=== PATIENT | male | born 1955 | race Caucasian/White ===

== ENCOUNTER 2022-07-03 05:54 | Day surgery (SDC) | payer BC, SELFPAY ==
[2022-07-03] VITALS (22 sets, daily range): BP systolic 102–155; BP diastolic 63–98; PULSE 52–103; RESP 14–20; TEMP 36.4–37.3; O2SAT 93–99; BMI 21.0
[2022-07-03] MEDS: OXYCODONE (CR) 10 MG TAB.ER.12H PO (06:33)
[2022-07-03] MEDS: ACETAMINOPHEN 500 MG TABLET 1000 MG PO ×3 (06:33→20:46)
[2022-07-03] MEDS: CELECOXIB 200 MG CAPSULE PO ×2 (06:33→20:47)
[2022-07-03] MEDS: SODIUM CHLORIDE 0.9 % (FLUSH) 10 ML SYRINGE IVF (07:30)
[2022-07-03] MEDS: LACTATED RINGERS 1000 ML 1,000 ML 100 ML IV (07:30)
--- NOTE | 2022-07-03 07:56 | SUR.PREOP ---
TIME?OUT:?right knee PT/RN/MDA?VERIFICATION?OF?SURGICAL?SITE,?PROCEDURE,?AND?CONSENT OBTAINED?PRIOR?TO?INVASIVE?PROCEDURE.
[2022-07-03] MEDS: fentaNYL 100 MCG/2 ML inj IVP (08:00)
[2022-07-03] MEDS: MIDAZOLAM HCL 1 MG/ML inj IVP (08:00)
--- NOTE | 2022-07-03 08:08 | W.PM.NB ---
Nerve Block Nerve Block Time Seen by Provider: 08:08 Date Seen: 07/03/22 Type of block requested by surgeon for post-operative analgesia: geniculars Side: right Time out performed: Yes Verification of patient name: Yes Verification of date of : Yes Site marking: site marked Name of person performing procedure: Omar Continuous monitoring Was continuous monitoring of O2 sat, B/P, housing project manager, recorded every 15 minutes?: Yes Procedure Checklist: sterile prep, needles and gloves Medications given in 5ml increments after negative aspiration: Marcaine %: 0.5 mL: 10 Needle gauge: 25 Patient tolerated procedure well: Yes Block Charges Block Charge (with Pro Fee): Genicular Nerve Block Use of Ultrasound Machine for Block: No
--- NOTE | 2022-07-03 08:08 | W.PM.NB ---
Nerve Block Nerve Block Time Seen by Provider: 08:08 Date Seen: 07/03/22 Type of block requested by surgeon for post-operative analgesia: adductor canal Side: right Time out performed: Yes Verification of patient name: Yes Verification of date of : Yes Site marking: site marked Name of person performing procedure: Omar Assistants, if any: Cyndiembrogharesh Continuous monitoring Was continuous monitoring of O2 sat, B/P, quality assurance monitor, recorded every 15 minutes?: Yes Procedure Checklist: sterile prep, needles and gloves Ultrasound guided. Images saved: Yes Medications given in 5ml increments after negative aspiration: Marcaine %: 0.5 mL: 20 Needle gauge: 20 Decadron (mg): 10 Precedex (mcg): 25 Patient tolerated procedure well: Yes Additional comments: Needle noted adjacent to nerve Block Charges Block Charge (with Pro Fee): Femoral Nerve Use of Ultrasound Machine for Block: Yes- US Guidance/pain block
[2022-07-03] MEDS: CEFAZOLIN 2 GM INJ IVP (08:30)
--- NOTE | 2022-07-03 09:04 | SUR.OPER ---
PATIENT QUESTIONS ANSWERED SATISFACTORILY PREOPERATIVELY.? PATIENT BROUGHT TO OR #3 PER CART AFTER ADMINISTRATION OF THE BLOCK.? Patient positioned supine on OR #3 bed.?The perioperative?team supported arms bilaterally on arm boards.? Final approval of positioning by surgeon.?
--- NOTE | 2022-07-03 09:31 | CRLHL7_ITS ---
For Patients: As a result of the Cures Act, medical imaging exams and procedure reports are released immediately into your electronic medical record. You may view this report before your referring provider. If you have questions, please contact your health care provider. Indication: POST OP RIGHT TKA Technique: Two views right knee Findings/Impression: Hardware from a right total knee arthroplasty is in satisfactory position. Bone alignment is normal. No sign of acute fracture. Postop changes are within normal limits. Dictated by Sergey Strong MD @ 07/03/2022 11:18:19 AM (Electronically Signed)
--- NOTE | 2022-07-03 09:34 | P.ORPRC_ITS ---
Procedure Note Date of procedure: 07/03/22 Procedure: SURGEON: Imer Oviedo MD LABORATORY IMMUNOLOGIST: JOHANNA Xiong PREOPERATIVE DIAGNOSIS: Right knee osteoarthritis POSTOPERATIVE DIAGNOSIS: Right knee osteoarthritis NAME OF OPERATION: Right total knee arthroplasty ANESTHESIA: Spinal ESTIMATED BLOOD LOSS: 0 mL COMPLICATIONS: None SPECIMENS: None DRAINS: None PREOPERATIVE ANTIBIOTICS: Ancef 1 g IMPLANTS: 1. J&J Attune #6 posterior stabilized femur 2. #6 fixed-bearing tibia 3. #6 posterior stabilized, 10 mm fixed-bearing polyethylene 4. 38 patella INDICATIONS: The patient is a 67-year-old male with a longstanding history of severe, unrelenting right knee pain secondary to end-stage (grade IV) right knee osteoarthritis. Despite appropriate nonoperative management, including activity modification, anti-inflammatories, [id number]-[id number] pain medication, bracing, physical therapy, and injections they continue to have pain and disability. Operative intervention was offered. The risks, benefits and expected outcomes were discussed in detail. These included but were not limited to: Infection, bleeding, injury to blood vessel or nerve, venous thromboembolism. All questions were answered to their satisfaction. Use of an assistant track and field coach was necessary throughout the case for patient positioning and safety, soft tissue retraction, and closure. PROCEDURE: Spinal anesthesia was administered. The patient was placed supine on the operating table. The assistant track and field coach made sure the patient was positioned appropriately. The lower extremity was prepped and draped in the usual sterile fashion. The limb was exsanguinated with the Ramiro bandage. The pneumatic tourniquet was inflated to 300 mmHg. A standard anterior incision was made with the knee in flexion. Subcutaneous dissection was sharply taken through fascial layer #1. Full-thickness medial and lateral flaps were elevated. The assistant track and field coach retracted the soft tissues and protected them throughout the case. A standard medial parapatellar approach was made. The patella was everted. The infrapatellar fat pad was preserved. The menisci and cruciate ligaments were sharply d?brided. Marginal osteophytes were d?brided with the rongeur. The drill was used to penetrate the femoral canal. The canal was aspirated and irrigated with pulse lavage. The intramedullary femoral guide was placed for a 5-degree valgus cut, removing 10 mm off the distal femur. The saw was used to make the cut. Whitesides line and the trans epicondylar axis were marked. The femoral sizing guide was pinned onto the distal femur. Three degrees of external rotation nicely parallels the transepicondylar axis. Pins were placed for posterior referencing. The four-in-one cutting guide was pinned onto the distal femur. The anterior, posterior, and chamfer cuts were made. The assistant track and field coach protected the collateral ligaments. The box cutting guide was pinned. The box cuts were made. The boxed trial was placed and was an excellent fit. Drill holes for the lugs were made. Attention was then turned to the proximal tibia. The extramedullary tibial guide was placed for a neutral varus/valgus cut with 5 degrees of posterior slope, removing 1 mm based off the medial tibial surface. The assistant track and field coach protected the collateral ligaments and the neurovascular bundle. The saw was used to make the cut. Trial components were placed. The knee was nicely balanced in both flexion and extension. Rotation of the tibial component was matched to the femur in full extension, matched to our tibial cutting pins, and marked with cautery. The trial components were removed. The tray was pinned by the assistant track and field coach and the drill and the punch were used. The tray was removed. The punch was used again. We placed a bone plug in the femoral canal. Attention was then turned to the patella. [place] patellar thickness was 22 mm. The lobster claw resection guide was used with the 7.5 mm kusum. The saw was used to make the cut. Drill holes were made by the assistant track and field coach. The trial was placed and was an excellent fit. Cancellous surfaces were irrigated with pulse lavage and thoroughly dried by the assistant track and field coach. We cemented the tibial component, then the femoral component. A trial spacer was placed. The knee was brought into full extension. We then cemented the patellar component. Excessive cement was removed. The cement was allowed to harden. Any remaining excessive cement was removed with the osteotome. We impacted the 10 mm polyethylene onto the tibial tray. The knee was taken through a range of motion and was found to be nicely balanced in both flexion and extension. The patella tracks centrally. The assistant track and field coach did a three minute dilute Betadine solution soak. The assistant track and field coach irrigated the wound with 3 liters of normal saline via pulse lavage. The assistant track and field coach reapproximated the extensor mechanism with #1 Vicryl in an interrupted [id number] fashion. The assistant track and field coach then ran the extensor mechanism with a #1 PDO Stratafix. The assistant track and field coach closed the subcutaneous tissues with a 3-0 Stratafix and the skin with a running 3-0 Stratafix in a subcuticular fashion. Glue was used to seal the skin. The assistant track and field coach placed a dry dressing, DARREN stocking, and Polar Care. Sponge and needle counts were correct x2. The patient tolerated the procedure well. There were no apparent complications. They were carefully transferred to the hospital bed and taken to the postanesthesia care unit in satisfactory condition. PLAN: The patient will be mobilized with physical therapy. Aspirin will be used for DVT prophylaxis. They will be discharged to home once medically appropriate.
--- NOTE | 2022-07-03 10:19 | W.ANESCHARGE ---
Anesthesia Charges Start Date/Time Anesthesia Start Date: 07/03/22 Anesthesia Start Time: 08:13 Stop Date/Time Anesthesia Stop Date: 07/03/22 Anesthesia Stop Time: 10:23 Summary Emergency: No
--- NOTE | 2022-07-03 10:26 | W.ANESCHARGE ---
Anesthesia Charges Start Date/Time Anesthesia Start Date: 07/03/22 Anesthesia Start Time: 08:13 Stop Date/Time Anesthesia Stop Date: 07/03/22 Anesthesia Stop Time: 10:23 Summary Emergency: No
[2022-07-03] MEDS: LACTATED RINGERS 1000 ML 1,000 ML 75 ML IV ×2 (11:19→18:07)
[2022-07-03 14:06] LABS: Sodium* 137 mmol/L (135-149)
--- NOTE | 2022-07-03 14:30 | PM.IMCN1 ---
Date of Consult Patient: Malaika Patient Consult date: 07/03/22 Requesting Physician: Orthopedics Primary Care Provider: Manjula Ibarra MD Consult Narrative Reason for consult: Postoperative care of coronary disease, hypertension, Parkinson disease Narrative: Tony Isaacs III is a 67 year old man who underwent an elective right total knee arthroplasty today. His orthopedic surgeon has requested that the hospitalists assist with supporting the patient postoperatively relative to known coronary disease, hypertension, and Parkinson's disease. Patient has a history of unstable angina and coronary artery disease. Status post coronary bypass grafting March of 2021, CAMEJO to LAD, SVG to OM, SVG to PDA. Excellent results. Asymptomatic since then. Also has a history of coronary artery stent placement prior to this. Blood pressure and cholesterol have been well controlled. Patient struggles with evolving Parkinson's disease. On multiple medications for treatment of the same. Lives home alone. Does have some support. His intention is to return home after the surgery. Review of Systems Status of ROS: Reports: 10 or more systems reviewed and unremarkable except as noted in History and below Narrative: Denies chest heaviness, pressure, tightness, or pain. Denies angina anginal equivalent. Denies syncope or near-syncope. Denies nausea or vomiting. Denies palpitations. Denies dyspnea at rest, paroxysmal nocturnal dyspnea, orthopnea. Denies dependent edema. Bowel and bladder function are satisfactory. Takes his time when eating. Denies dyspepsia, dysphagia, or odynophagia. No recent trauma or travel. No recent febrile illness, rigors, or diaphoresis. Weight has been relatively stable. No weight gain or weight loss. Acknowledges difficulty with his voice. Has a hard time projecting his voice with evolving Parkinson's disease. Able to manage independently in his own home. Denies myalgias or arthralgias. Patient makes it very clear that he wants a DNR DNI resuscitation status. This is not new. He has felt this way for some time. He did not hesitate whatsoever in articulating this to me during the course of my assessment. [facility] Medical History (Updated 07/03/22 @ 14:51 by Humberto Meneses MD) Coronary atherosclerosis Depressive disorder History of unstable angina History of urinary retention Hypercholesteremia Hypertension Myocardial infarction Parkinson disease Post traumatic stress disorder (PTSD) Sleep apnea Surgical History (Updated 07/03/22 @ 14:48 by Humberto Meneses MD) History of coronary artery stent placement History of laminectomy History of quadruple bypass (~04/25/21) Hx of bilateral inguinal hernia repair Family History Sister High blood pressure Father Basal cell carcinoma Prostate cancer High blood pressure Myocardial infarct Mother Diabetes Myocardial infarct Social History Smoking Status: Never smoker Do you use any of these nicotine containing products: None How often do you have a drink containing alcohol: never AUDIT-C Alcohol total score: 0 Non-prescribed substance use: denies use Non-prescribed substance use details: acetaminophen Caffeine: Yes (coffee, 1 cup/day) Meds Home Medications and Allergies Home Medications Medication Instructions Recorded Confirmed Type acetaminophen 325 mg tablet (Aphen) 325 - 650 mg PO Q4H PRN 07/03/22 07/03/22 History amantadine HCl 100 mg capsule 100 mg PO BID 07/03/22 07/03/22 History ascorbic acid (vitamin C) 500 mg 500 mg PO DAILY 07/03/22 07/03/22 History tablet aspirin 81 mg chewable tablet 81 mg PO DAILY PRN 07/03/22 07/03/22 History carbidopa ER 23.75 mg-levodopa 95 5 cap PO BID 07/03/22 07/03/22 History mg capsule,extended release carbidopa ER 50 mg-levodopa 200 mg 1 tab PO HS 07/03/22 07/03/22 History tablet,extended release multivitamin with iron (Daily 1 tab PO DAILY 07/03/22 07/03/22 History Multiple Vitamins with Iron tablet) nitroglycerin 0.4 mg sublingual 0.4 mg sublingual Q5M PRN 07/03/22 07/03/22 History tablet rosuvastatin 40 mg tablet 40 mg PO DAILY 07/03/22 07/03/22 History sennosides 8.6 mg-docusate sodium 1 tab-cap PO DAILY PRN 07/03/22 07/03/22 History 50 mg tablet (Senexon-S) Allergies Allergy/AdvReac Type Severity Reaction Status Date / Time adenosine Allergy Severe feeling of Verified 07/03/22 06:22 PA Cephalosporins Allergy Severe Anaphylaxis Verified 07/03/22 06:22 dobutamine Allergy Unknown Verified 07/03/22 06:22 morphine Allergy Verified 07/03/22 06:22 Erythromycin Allergy Mild GI upset Uncoded 07/03/22 06:22 Exam Narrative: Exam Narrative: Alert, articulate, cooperative. Oriented to self, place, time, situation. Friendly and talkative. Articulate. Coherent. Mood and affect are congruent. Lungs clear to auscultation. Heart tones with regular rhythm, normal S1-S2. No murmur, gallop, or rub. Abdomen with active bowel sounds, soft, nontender. Thin abdomen. Resting tremor, not new. No asterixis or ataxia. Moves all 4 extremities. No edema. Skin is warm, dry, intact. Const: Vital Signs, click to edit/add: Vital Signs - 24 hr 07/03/22 06:55 07/03/22 08:00 07/03/22 08:12 Temperature 99.2 F 99.2 F Pulse Rate 78 70 72 Pulse Rate [Left P ulse Oximeter] Respiratory Rate 20 16 16 Blood Pressure 137/78 155/80 H 153/78 H Blood Pressure [Ri ght Arm] Pulse Oximetry 99 98 98 Oxygen Delivery Me thod Room Air Nasal Cannula Nasal Cannula Oxygen Flow Rate 2 2 07/03/22 10:19 07/03/22 10:25 07/03/22 10:50 Temperature 97.8 F Pulse Rate 58 L 54 L 52 L Pulse Rate [Left P ulse Oximeter] Respiratory Rate 14 16 16 Blood Pressure 102/63 125/71 120/70 Blood Pressure [Ri ght Arm] Pulse Oximetry 93 94 96 Oxygen Delivery Me thod Room Air Room Air Oxygen Flow Rate 07/03/22 10:30 07/03/22 10:35 07/03/22 10:40 Temperature Pulse Rate 61 54 L 56 L Pulse Rate [Left P ulse Oximeter] Respiratory Rate 14 16 16 Blood Pressure 106/66 106/69 118/82 Blood Pressure [Ri ght Arm] Pulse Oximetry 94 93 93 Oxygen Delivery Me thod Nasal Cannula Room Air Room Air Oxygen Flow Rate 07/03/22 10:45 07/03/22 10:55 07/03/22 11:15 Temperature 97.5 F L 97.5 F L 97.6 F Pulse Rate 58 L 56 L Pulse Rate [Left P ulse Oximeter] 61 Respiratory Rate 16 16 14 Blood Pressure 123/81 120/90 H Blood Pressure [Ri ght Arm] 136/69 Pulse Oximetry 96 98 97 Oxygen Delivery Me thod Room Air Room Air Room Air Oxygen Flow Rate 2 07/03/22 11:15 07/03/22 11:30 07/03/22 11:45 Temperature 97.6 F 97.6 F 97.6 F Pulse Rate Pulse Rate [Left P ulse Oximeter] 61 60 71 Respiratory Rate 14 14 16 Blood Pressure Blood Pressure [Ri ght Arm] 136/69 145/90 H 134/78 Pulse Oximetry 97 95 94 Oxygen Delivery Me thod Room Air Room Air Room Air Oxygen Flow Rate 07/03/22 11:15 07/03/22 12:00 07/03/22 12:15 Temperature 97.6 F 97.5 F L 97.8 F Pulse Rate 61 Pulse Rate [Left P ulse Oximeter] 71 85 Respiratory Rate 14 16 16 Blood Pressure Blood Pressure [Ri ght Arm] 136/69 138/82 135/81 Pulse Oximetry 94 94 Oxygen Delivery Me thod Room Air Room Air Room Air Oxygen Flow Rate Labs Labs: [facility] 07/03/22 13:36 Sodium 137 Assessment and Plan Assessment and plan (1) Osteoarthritis of right knee: Status: Acute (2) Status post total knee replacement, right: Status: Acute (3) Parkinson disease: Status: Acute (4) Coronary atherosclerosis: Status: Acute (5) Hypertension: Status: Acute (6) History of urinary retention: Status: Acute (7) Sleep apnea: Problem comment: Does not use CPAP Status: Acute Plan 1. Reviewed impression with patient. Answered his questions. 2. Resume his usual medications. 3. Monitor for complications. 4. Will follow with Orthopedic surgery. 5. Agrees venous thromboembolism prophylaxis. 6. Agree with perioperative prophylactic antibiotics. 7. Will specifies request for DNR DNI resuscitation status in the event of cardiopulmonary demise. 8. Patient designates his sister as his power of employment attorney for health should that be required. 9. History of obstructive sleep apnea noted. Does not use CPAP. States he has done well in this regard for some time. Will monitor nonetheless.
--- NOTE | 2022-07-03 14:37 | PC.SOCIAL ---
Discharge planning: Met briefly with pt for discharge planning. Pt states he lives by himself in [place] and is expecting to return home alone at discharge. Pt has a home care nurse through [facility] who sets up medications every other week. Pt states he does all other housekeeping, cooking, etc on his own and expects to be able to do that at discharge. Pt denied having any one arranged to assist him at home besides home care nurse for medication set up. calender worker helper shared information on options for short term rehab if needed. PT is not interested at this time in that option but is aware outreach and education social worker is available if discharge plans or needs change. automobile body worker to follow up as needed.
[2022-07-03] MEDS: CEFAZOLIN 1 GM in 0.9 % SODIUM CHLORIDE Mini-bag 100 ML IVPB ×2 (14:41→23:02)
[2022-07-03] MEDS: OXYCODONE 5 MG TABLET PO ×3 (16:08→20:47)
[2022-07-03] MEDS: HYDROmorphone 0.5 mg/0.5 ml inj IVP (18:06)
--- NOTE | 2022-07-03 19:08 | PC.NURSE ---
shift note: pt to rm via bed @ 1115. Pt a&o x3. post op vss stable. pt had complete numbness till 1530. Pt had 5mg oxycodone for 8 pain with no relief. additional 5 mg oxycodone given for 07/09 @ 1644. pt up to recliner with 1/walker. pt has shuffled gait. drs to rt knee c/d/i. cryo cuff over surgical site. pp intact bilat. LS clr. IV patent. Pt medicated for 07/09 continued pain rt knee @ 1806
[2022-07-03] MEDS: ASPIRIN 81 MG TABLET EC PO (20:47)
[2022-07-03] MEDS: SENNOSIDES 1 TAB TABLET 2 TAB PO (20:47)
[2022-07-04] MEDS: ACETAMINOPHEN 500 MG TABLET 1000 MG PO ×2 (00:49→09:26)
[2022-07-04] MEDS: OXYCODONE 5 MG TABLET PO (04:23)
[2022-07-04] MEDS: CEFAZOLIN 1 GM in 0.9 % SODIUM CHLORIDE Mini-bag 100 ML IVPB (06:09)
--- NOTE | 2022-07-04 06:58 | PC.NURSE ---
Alert and orientedx3 with some intermittent forgetfulness; easily reoriented. On room air satting fine. Vitals stable. right knee dressing CDI. Pain on the right knee managed with ice pack, Tylenol and oxycodone. Up and walking with standby assist and a walker. Lots of anxiety with his leg gadget needing a lot of assurance. Abx administered as per orders. Excited to start therapy and go home. No signs of infection noted. Will continue to monitor and assess
[2022-07-04 07:36] LABS: Basophils Percent Auto 0.1 % (0.0-3.0); Hematocrit 39.1 % (37.0-53.0); Hemoglobin* 13.1 gm/dL (13.5-17.5); Immature Granulocytes Abs Auto 0.04 K/uL (0.00-0.30); Lymphocytes Percent Auto 4.7 % (20-44); Mean Corpuscular HGB Conc 34 gm/dL (32-36); Mean Corpuscular Hemoglobin 30 pg (26-34); Mean Corpuscular Volume 90 fL (80-100); Monocytes Percent Auto 5.8 % (0.0-11.0); Neutrophils Percent Auto 89.2 % (42.0-72.0); Platelet Count* 312 K/uL (140-440); RDW Coefficient of Variation % 11.4 % (11.5-15.5); Red Blood Count 4.37 m/uL (4.30-5.90); White Blood Count* 16.84 K/uL (4.50-11.00)
[2022-07-04 07:42] LABS: Slide Review Reflex No
[2022-07-04 07:44] LABS: INR 1.19 (0.91-1.10); Prothrombin Time 15.6 Seconds
[2022-07-04 07:53] LABS: Chloride* 100 mmol/L (96-114); Potassium* 3.9 mmol/L (3.6-5.1); Sodium* 134 mmol/L (135-149)
[2022-07-04 07:56] LABS: Carbon Dioxide* 29 mmol/L (20-32)
[2022-07-04] MEDS: CELECOXIB 200 MG CAPSULE PO (09:24)
[2022-07-04] MEDS: ASPIRIN 81 MG TABLET EC PO (09:25)
[2022-07-04] MEDS: ROSUVASTATIN CALCIUM 10 MG TABLET 40 MG PO (09:26)
[2022-07-04] MEDS: SENNOSIDES 1 TAB TABLET 2 TAB PO (09:27)
--- NOTE | 2022-07-04 09:40 | PC.SOCIAL ---
Discharge plan: Met with pt again regarding d/c plan. Pt plans to return home with some assistance from his sister. Pt has been doing out pt PT prior to surgery and had planned on out pt PT at discharge. Today, pt is interested in home care for PT through [facility] if he qualifies for this service. Shared in formation with PT/OT and will follow up as needed.
--- NOTE | 2022-07-04 10:27 | PM.ORPN ---
Subjective Subjective Time Seen by Provider: 09:30 Date Seen: 07/04/22 Principal diagnosis: S/P right TKA Interval history: Tony is doing well this morning and is resting comfortably in his recliner. Patient complains of diffuse right knee pain and swelling. Pain is well managed with current scheduled and PRN oral pain medications and ice. Denies: fever, chills, body aches, chest pain, SOB. Patient has not yet been seen by Physical Therapy, but he is eager to get up and moving. Patient denies having a bowel movement since surgery and reports no flatulence yet. Patient has h/o Parksinsons and struggles with chronic constipation. He explains he has an enema readily available at home if needed. Patient feels ready to be discharged to home later this afternoon. His sister will be looking after him at home x 1 week. No acute events over night. Ortho Exam Narrative Exam Narrative: Incision/Dressing: Dressing appears clean and dry. No drainage present. Mepilex intact. Right knee appears moderately swollen but supple with no obvious erythema, fluctuance or excessive warmth. No ecchymosis or erythematous streaking. Warmth around the wound is appropriate. Ice is being utilized as needed. CMS: Intact distally with 2+ Dorsalis pedis and Posterior Tibial pulses. 5/5 motor strength dorsal and plantar flexion. Confirmed sensation distally. Intact straight leg raise. Calf: Bilateral calves are supple, with no swelling, pain, tenderness, erythema, discoloration or coolness to the touch. Constitutional: Patient is alert and oriented x3. Patient is in no acute distress and converses without labored breathing. Patient is able to make decisions and demonstrates good insight. Patient is pleasant and cooperative. Affect is full range and appropriate for the circumstances. Const Vital Signs, click to edit/add: Vital Signs - 24 hr 07/03/22 10:50 07/03/22 10:30 07/03/22 10:35 Temperature Pulse Rate 52 L 61 54 L Pulse Rate [Left Pulse Oximeter] Respiratory Rate 16 14 16 Blood Pressure 120/70 106/66 106/69 Blood Pressure [Right Arm] Pulse Oximetry 96 94 93 Oxygen Delivery Method Room Air Nasal Cannula Room Air Oxygen Flow Rate 07/03/22 10:40 07/03/22 10:45 07/03/22 10:55 Temperature 97.5 F L 97.5 F L Pulse Rate 56 L 58 L 56 L Pulse Rate [Left Pulse Oximeter] Respiratory Rate 16 16 16 Blood Pressure 118/82 123/81 120/90 H Blood Pressure [Right Arm] Pulse Oximetry 93 96 98 Oxygen Delivery Method Room Air Room Air Room Air Oxygen Flow Rate 2 07/03/22 11:15 07/03/22 11:15 07/03/22 11:30 Temperature 97.6 F 97.6 F 97.6 F Pulse Rate Pulse Rate [Left Pulse Oximeter] 61 61 60 Respiratory Rate 14 14 14 Blood Pressure Blood Pressure [Right Arm] 136/69 136/69 145/90 H Pulse Oximetry 97 97 95 Oxygen Delivery Method Room Air Room Air Room Air Oxygen Flow Rate 07/03/22 11:45 07/03/22 11:15 07/03/22 12:00 Temperature 97.6 F 97.6 F 97.5 F L Pulse Rate 61 Pulse Rate [Left Pulse Oximeter] 71 71 Respiratory Rate 16 14 16 Blood Pressure Blood Pressure [Right Arm] 134/78 136/69 138/82 Pulse Oximetry 94 94 Oxygen Delivery Method Room Air Room Air Room Air Oxygen Flow Rate 07/03/22 12:15 07/03/22 12:45 07/03/22 13:15 Temperature 97.8 F 97.8 F 97.8 F Pulse Rate Pulse Rate [Left Pulse Oximeter] 85 86 95 Respiratory Rate 16 16 16 Blood Pressure Blood Pressure [Right Arm] 135/81 135/81 116/92 H Pulse Oximetry 94 95 95 Oxygen Delivery Method Room Air Room Air Room Air Oxygen Flow Rate 07/03/22 14:15 07/03/22 15:15 07/03/22 16:15 Temperature 97.8 F 97.8 F 97.8 F Pulse Rate Pulse Rate [Left Pulse Oximeter] 103 H 100 81 Respiratory Rate 16 16 16 Blood Pressure Blood Pressure [Right Arm] 143/98 H 131/88 122/77 Pulse Oximetry 96 96 96 Oxygen Delivery Method Room Air Room Air Room Air Oxygen Flow Rate 2 07/03/22 17:15 Temperature 97.8 F Pulse Rate Pulse Rate [Left Pulse Oximeter] 85 Respiratory Rate 16 Blood Pressure Blood Pressure [Right Arm] 149/67 H Pulse Oximetry 97 Oxygen Delivery Method Room Air Oxygen Flow Rate Assessment and Plan Assessment and plan (1) Osteoarthritis of right knee: Status: Acute (2) Status post total knee replacement, right: Problem details: 1. Status post right total knee replacement. DOS: . Status: Acute Assessment and Plan: - Complete 23 hour perioperative antibiotics. - PT/OT consults for education and assistance. - Social consult for discharge planning. - Weight bear as tolerated. - DVT prophylaxis includes: aspirin 81 mg BID x 1 month. Also bilateral knee high Fabrice stockings (x 1 month), frequent ambulation and ankle pumps when sedentary. - Anticipate patient will be discharged to home this afternoon if the patient remains medically stable, pain is controlled and is safe with ambulation. - Return to clinic in 1 week for a wound check. Mepilex dressing will be removed at this appointment. Remove sooner if dressing becomes saturated. - Return to clinic in [address] Oviedo. - Prescribed analgesics as needed. Patient is content with current narcotic medications. Minimize narcotic pain medication use; wean off and discontinue as soon as possible. - Phone Orthopedics with any questions or concerns. (3) Parkinson disease: Status: Acute (4) Coronary atherosclerosis: Status: Acute (5) Hypertension: Status: Acute (6) History of urinary retention: Status: Acute (7) Sleep apnea: Problem details: Does not use CPAP Status: Acute
--- NOTE | 2022-07-04 10:53 | PM.DS1 ---
DS: Providers Provider Time Seen by Provider: 10:30 Date Seen: 07/04/22 Date of admission: 07/03/2022 Primary care physician: Manjula Ibarra MD Admitting Clinician: Imer Oviedo MD Consults: 07/03/22 11:13 Consult to Occupational Therapy [CONS] Routine Comment: Reason(s) for OT Consult:: ADLs Prior to Discharge Any Restrictions?:: See Comment Comment: See nursing activity order for any restrictions. Consult to Physical Therapy [CONS] Routine Comment: Ambulate in the ackerman today. Reason(s) for PT Consult:: TKA TX Protocol POD#0 Any Restrictions?:: See Comment Comment: See nursing activity order for any restrictions. Consult to Physician [CONS] Routine Comment: Consulting Provider: Hospitalists Has provider been notified: No Consult to Capacity Management Specialist [CONS] Routine Comment: Reason for Consult:: Discharge Planning Needs Attending Physician on discharge: Imer Oviedo MD Date of Discharge: 07/04/22 DS: Diagnosis Discharge Diagnosis (1) Osteoarthritis of right knee: Status: Acute (2) Status post total knee replacement, right: Status: Acute Problem details: 1. Status post right total knee replacement. DOS: . (3) Parkinson disease: Status: Acute (4) Hypertension: Status: Acute (5) Coronary atherosclerosis: Status: Acute (6) Sleep apnea: Status: Acute Problem details: Does not use CPAP (7) History of urinary retention: Status: Acute DS: Summary Hospital Course Hospital Course: 67-year-old man who presented for an elective right total knee arthroplasty. This is undertaken successfully. No complications apparent. He demonstrates adequate ability to care for self and ambulate. Will need support from his sister in the home for about a week. We spoke with her. She is agreeable. Patient agreeable. Does have mild postoperative anemia with hemoglobin 13.1. Also has mild postoperative hyponatremia with sodium of 134. Status at Discharge Functional status at discharge: uses cane/walker Overall status at discharge: patient is progressing back to baseline Time Spent with Patient Time attestation: Total time spent providing and/or coordinating discharge services: Time spent: Less than 30 minutes Exam Narrative: Exam Narrative: Alert, articulate, cooperative.? Oriented to self, place, time, situation.? Friendly and talkative.? Articulate.? Coherent.? Mood and affect are congruent.? Lungs clear to auscultation.? Heart tones with regular rhythm, normal S1-S2.? No murmur, gallop, or rub.? Abdomen with active bowel sounds, soft, nontender.? Thin abdomen. Resting tremor, not new.? No asterixis or ataxia. Moves all 4 extremities. No edema. Skin is warm, dry, intact. Transfers with standby assist. Able to ambulate with roller walker and standby assist. Const: Vital Signs, click to edit/add: Vital Signs - 24 hr 07/03/22 10:55 07/03/22 11:15 07/03/22 11:15 Temperature 97.5 F L 97.6 F 97.6 F Pulse Rate 56 L Pulse Rate [Left P ulse Oximeter] 61 61 Respiratory Rate 16 14 14 Blood Pressure 120/90 H Blood Pressure [Ri ght Arm] 136/69 136/69 Pulse Oximetry 98 97 97 Oxygen Delivery Me thod Room Air Room Air Room Air Oxygen Flow Rate 2 07/03/22 11:30 07/03/22 11:45 07/03/22 11:15 Temperature 97.6 F 97.6 F 97.6 F Pulse Rate 61 Pulse Rate [Left P ulse Oximeter] 60 71 Respiratory Rate 14 16 14 Blood Pressure Blood Pressure [Ri ght Arm] 145/90 H 134/78 136/69 Pulse Oximetry 95 94 Oxygen Delivery Me thod Room Air Room Air Room Air Oxygen Flow Rate 07/03/22 12:00 07/03/22 12:15 07/03/22 12:45 Temperature 97.5 F L 97.8 F 97.8 F Pulse Rate Pulse Rate [Left P ulse Oximeter] 71 85 86 Respiratory Rate 16 16 16 Blood Pressure Blood Pressure [Ri ght Arm] 138/82 135/81 135/81 Pulse Oximetry 94 94 95 Oxygen Delivery Me thod Room Air Room Air Room Air Oxygen Flow Rate 07/03/22 13:15 07/03/22 14:15 07/03/22 15:15 Temperature 97.8 F 97.8 F 97.8 F Pulse Rate Pulse Rate [Left P ulse Oximeter] 95 103 H 100 Respiratory Rate 16 16 16 Blood Pressure Blood Pressure [Ri ght Arm] 116/92 H 143/98 H 131/88 Pulse Oximetry 95 96 96 Oxygen Delivery Me thod Room Air Room Air Room Air Oxygen Flow Rate 2 07/03/22 16:15 07/03/22 17:15 Temperature 97.8 F 97.8 F Pulse Rate Pulse Rate [Left P ulse Oximeter] 81 85 Respiratory Rate 16 16 Blood Pressure Blood Pressure [Ri ght Arm] 122/77 149/67 H Pulse Oximetry 96 97 Oxygen Delivery Me thod Room Air Room Air Oxygen Flow Rate Documenting provider has reviewed patient's vital signs: yes DS: Data Data Completed and Pending Labs on day of discharge: Labs from last 24 hours 07/04/22 07/04/22 07/04/22 06:14 06:14 06:14 WBC 16.84 H RBC 4.37 Hgb 13.1 L Hct 39.1 MCV 90 MCH 30 MCHC 34 RDW Coeff of Aris 11.4 L Plt Count 312 Neut % (Auto) 89.2 H Lymph % (Auto) 4.7 L Long % (Auto) 5.8 Eos % (Auto) 0.0 Baso % (Auto) 0.1 Neut # (Auto) 15.00 H Lymph # (Auto) 0.80 L Long # (Auto) 1.00 H Eos # (Auto) 0.00 Baso # (Auto) 0.00 Abs Immat Gran (auto) 0.04 INR 1.19 H Sodium 134 L Potassium 3.9 Chloride 100 Carbon Dioxide 29 07/03/22 13:36 WBC RBC Hgb Hct MCV MCH MCHC RDW Coeff of Aris Plt Count Neut % (Auto) Lymph % (Auto) Long % (Auto) Eos % (Auto) Baso % (Auto) Neut # (Auto) Lymph # (Auto) Long # (Auto) Eos # (Auto) Baso # (Auto) Abs Immat Gran (auto) INR Sodium 137 Potassium Chloride Carbon Dioxide Discharge Plan Discharge Disposition: Home, Self-Care Discharging Surgeon: Imer Oviedo Follow-Up Appointment: One week Prescriptions: New acetaminophen 500 mg Tablet 500 - 1,000 mg PO Q6H MDD 4000 mg per day PRN (Reason: pain) Qty: 100 0RF aspirin [Aspirin Childrens] 81 mg tablet,chewable 81 mg PO BID 30 Days Qty: 60 0RF Rx Instructions: For DVT prophylaxis oxycodone 5 mg Tablet 2.5 - 5 mg PO Q4-6H MDD 6 tabs per day PRN (Reason: Pain) Qty: 42 0RF Rx Instructions: Minimize. Discontinue soon as possible sennosides [Senna Lax] 8.6 mg Tablet 17.2 mg PO BID PRN (Reason: constipation) Qty: 100 0RF Continued amantadine HCl 100 mg capsule 100 mg PO BID ascorbic acid (vitamin C) 500 mg tablet 500 mg PO DAILY carbidopa-levodopa 23.75-95 mg capsule, extended release 5 cap PO BID multivitamin with iron [Daily Multiple Vitamins/Iron] Tablet 1 tab PO DAILY nitroglycerin 0.4 mg tablet, sublingual 0.4 mg sublingual Q5M PRN Rx Instructions: PRN CHEST PAIN rosuvastatin 40 mg tablet 40 mg PO DAILY sennosides-docusate sodium [Senexon-S] 8.6-50 mg tablet 1 tab-cap PO DAILY PRN Label Comments: TAKE 1 TABLET BY MOUTH ONCE DAILY IF NEEDED FOR CONSTIPATION. carbidopa-levodopa 50-200 mg tablet extended release 1 tab PO HS Label Comments: TAKE 1 TABLET BY MOUTH EVERYDAY AT BEDTIME Held acetaminophen [Aphen] 325 mg tablet 325 - 650 mg PO Q4H PRN Hold Instructions: Resume on 08/01/22. Hold until completion of the 1 month course prescribed by your orthopedic surgeon. aspirin 81 mg tablet,chewable 81 mg PO DAILY PRN Hold Instructions: Resume on 08/01/22. Hold until completion of the 1 month course prescribed by your orthopedic surgeon. Activity Level: Activity as Tolerated and No strenuous activity Activity Detail: Keep dressing on for 1 week. Dressing is waterproof. May shower. Surgical glue covers the wound. Attend outpatient physical therapy if scheduled. Ice operative extremity without restriction. Elevate lower extremity as needed for swelling. Wear compression stockings for 1 month post surgery. May remove for 1 hour per day. Do not drive while taking narcotic pain medication. Do not drink alcohol while taking narcotic pain medication. May drive when safe to do so and have full function of the extremities, this may take 6 weeks or more. Notify Orthopedics with any questions or concerns. ([phone]) Diet Detail: FOLLOW PREVIOUS TO SURGERY Patient Instructions: Acetaminophen (By mouth), Aspirin (By mouth), Oxycodone, Rapid Release (By mouth), Senna (By mouth) (Sen, Senna-lax), Knee Replacement (DC) Follow-up: [facility] [Other] - 07/07/22 10:00 am Manjula Ibarra MD [Primary Care Provider] - Tianna Lafleur PA-C [Physician Hard Candy Batch Mixer] - 07/10/22 11:00 am Discharge Orders: Discharge Order (Routine); Ordered 07/04/22 Ordered By: Tianna Lafleur
[2022-07-04 11:13] VITALS: BP 123/68; PULSE 68; RESP 16; TEMP 36.6; O2SAT 96
--- NOTE | 2022-07-04 13:27 | PC.NURSE ---
Pt eval by Tianna BERRY, OT, PT, Dr. Reveles and myself. Pt and his sister Adiel verbalized understanding of d/c diagnosis, home meds, new prescriptions, f/up appts and sx to report urgently. Pt discharged via w/c to his own home w/personal belongings & his home meds returned at 1230 pm.
== END 2022-07-04 13:26 | disposition home or self-care (01) ==
LOC: OR 05:57 → MEDSURG 06:12
PROVIDERS: PCP Family Medicine; Visit Provider Orthopaedic Surgery
PROC: (CPT 27447; principal; 2022-07-03 07:30)
DX: M17.11 Unilateral primary osteoarthritis, right knee (principal); I25.10 Atherosclerotic heart disease of native coronary artery without angina pectoris; I10 Essential (primary) hypertension; G20 Parkinson's disease; E78.00 Pure hypercholesterolemia, unspecified; G47.33 Obstructive sleep apnea (adult) (pediatric)
CPT/HCPCS: 27447; 01402; 36415; 51702; 64447; 64454; 73560; 76942; 80051; 84295; 85025; 85027; 85610; 97110; 97116; 97162; 97166; 97530; 97535; A9153; A9270; C1776; J0690; J1100; J1170; J2250; J2405; J2704; J3010; J3490; J7120

== ENCOUNTER 2022-07-18 10:00 | Outpatient (RCR) | payer BC, SELFPAY ==
--- NOTE | 2022-06-24 17:18 | PT.OPEX ---
PT [facility] Outpatient Eval PT [facility] Outpatient Eval Start: 06/24/22 07:36 Freq: Status: Active Protocol: Document 06/24/22 15:35 SHANNAN (Rec: 06/24/22 17:09 SHANNAN [id number]) E-Signed By Kai Stein PT Physical Therapy Outpatient Evaluation Insurance Information Insurance Name Medicare B,Medicaid Medical Diagnosis Left knee OA Treating Diagnosis Left knee pain Left knee stiffness Subjective Subjective Pt. reports having progressive right knee pain symptoms due to OA. He is having surgery for a TKA on 07/03/22. He has been using a knee brace due to the pain and instability which has helped. He lives alone in one level home but does have laundry in basement. He hasn't been using an assistive device but does have a walker at home that was his fathers. He has Parkinson's Disease and had a NH with open heart surgery a year ago for a quadruple bypass. He has been having home health services for biweekly medication assistance. Pain Comments Severe intermittent pain with instability Date of Surgery (If applicable) 07/03/22 Current Work Status Retired Preferred Name [employer] Objective Range of Motion 0-125 deg. Assessment Assessment/Impression Objectively, pt. demonstrates 0-125 degrees of right knee AROM; ambulation without assistive device with noted mild shuffling gait and ataxia due to his Parkinson's; 4/5 quad and hamstring strength on right; no swelling of knee noted; and core weakness/ deconditioning due to his open heart surgery last year with some difficulty going from supine to sit. He will benefit from the pre-op ROM and strengthening activities leading into surgery. Primary Functional Limitations walking, steps, squatting. Plan of Care Rehabilitation Potential Good Physical Therapy Goals 1. Pt. will be indep. with pre -op HEP activities to perform for the next week leading to surgery on 07/03/22. MET 2. Pt. will demonstrate understanding of the TKA and post-op protocol exercises and needs. MET New Goals to come after post- op re-evaluation. Coordination/Communication With Referral Source Treatment Plan/Direct Interventions Self-Care/Home Management, Therapeutic Exercises Frequency/Duration One visit then re-evaluation at post-op visit. Patient Will Be Discharged From Therapy Independent w/HEP, Independently Progressing Evaluation Billing Complexity Moderate Certification Information Initial Certification Date 06/24/22 Ending Certification Date 09/16/22
--- NOTE | 2022-07-07 11:12 | PT.OPDNX ---
[facility] Daily Note PT [facility] Daily Note Start: 06/24/22 07:36 Freq: Status: Active Protocol: Document 07/07/22 09:00 SHANNAN (Rec: 07/07/22 09:04 SHANNAN [id number]) E-signed By Kai Stein, PT PT OP Daily Progress Note Visit Information Note Type Daily Note,Recert/Progress Note Visit Number 2 Insurance Information Insurance Name Medicare B,Medicaid Medical Diagnosis Left knee OA S/P left knee TKA Treating Diagnosis Left knee pain Left knee stiffness Impaired gait Left LE weakness Subjective Subjective Pt. reports having surgery for a TKA on 07/03/22. He is back home with assistance from his sister who is staying with him . He lives alone in one level home but does have laundry in basement. He has a couple of walkers as well as home modifications in place. He has Parkinson's Disease and had a NE with open heart surgery a year ago for a quadruple bypass. He has been having home health services for biweekly medication assistance prior to surgery. He is hoping they can maybe increase their assistance if needed for the short term while he is recovering. Pain Comments mod/severe pain Objective Patient Instructed in Risks/Benefits Yes Therapeutic Exercise Therapeutic Exercise Minutes (minutes) 25 Therapeutic Exercise: To Restore Reviewed post-op TKA protocol Functional Status exercises today including; ankle pumps, QS, HS, heel slides, SAQs, LAQs, SLRs, and knee AROM. performed passive extension and flexion right knee in supine. assisted SLRs and SAQs, quad sets, ankle pumps, standing Quad sets. Gait & Stair Training Gait Training/Stairs Minutes (minutes) 10 Gait & Stair Training Comments worked on ambulation using standard walker. Pt. needed frequent cueing for proper gait technique including heel/ toe, step through and equal steps. Treatment Minutes Untimed Code Treatment Minutes 20 Timed Code Treatment Minutes 35 Total Treatment Time 55 Billing Units Gait Training/Stairs Units 1 Therapeutic Exercise Units 1 Re-Evaluation Units 1 Assessment/Impression Assessment/Impression Pt. returns to therapy post-op TKA on 07/03/22 today. He ambulated with standard walker with step to gait and flexed knee. ROM is 10-100 degrees passively. moderate swelling is noted but no signs of infection noted. Quad strength is 2plus/5. Right ankle dorsiflexion is to neutral. Pt . has Parkinsons demonstrating shuffling gait with ataxia noted. He demonstrates good rehab potential to gain normal knee ROM and strength and indep. ambulation again without device unless his Parkinsons symptoms worsen. Plan of Care Physical Therapy Goals New Goals post-op: 1. Pt. will be indep. with HEP for self maintenance in 8 weeks. 2. Pt. will be able to ambulate indep. with appropriate assistive device or without in 8 weeks. 3. Pt. will demonstrate functional left knee ROM and strength for normal ADL's in 8 weeks. Daily Plan of Care Change POC; See Comments Recertification Information Initial Certification Date 06/24/22 Recertification Start Date 07/07/22 Recertification Due Date 09/05/22 Reasons to Continue Skilled Therapy Pt. underwent right knee TKA on 07/03/22 and he is appropriate for skilled therapy working on TKA protocol in an effort to regain functional right knee AROM, functional strength, and indep. gait. Rehabilitation Potential Good for Goals Provider Signature Shows Agreement With POC & Medical Necessity Physician Comment/Change Comment or Changes Physician NPI Number #
== END 2022-10-27 09:44 | disposition home or self-care (01) ==
PROVIDERS: Visit Provider Orthopaedic Surgery
DX: Z96.652 Presence of left artificial knee joint (principal); Z51.89 Encounter for other specified aftercare
CPT/HCPCS: 97110; 97116; 97140; 97162; 97164; 97535